=== PATIENT | female | born 1955 | race Caucasian/White ===

== ENCOUNTER 2024-10-02 10:50 | Outpatient (CLI) | payer MEDICARE, OTHER ==
[2024-10-02 11:29] LABS: CREATININE 0.57 MG/DL (0.40-0.90); TOTAL CARBON DIOXIDE 30.4 MMOL/L (24-32); eGFR > 90 ML/MIN
== END 2024-10-02 23:59 | disposition home or self-care (01) ==
LOC: LAB 10:50
PROVIDERS: ATTEND Family Medicine
DX: M19.011 Primary osteoarthritis, right shoulder (principal); M25.511 Pain in right shoulder
CPT/HCPCS: 36415; 80053

== ENCOUNTER 2024-10-03 12:47 | Outpatient (CLI) | payer MEDICARE, OTHER ==
--- NOTE | 2024-10-03 20:37 | RADIOLOGY REPORT ---
EXAM: MR MRI UPPER EXTREMITY RIGHT INDICATION: 68 years old, Female; PAIN IN RIGHT SHOULDER; SOFT TISS MASS ABOVE R AC. PAIN IN RIGHT SH OULDER; SOFT TISS MASS ABOVE R AC TECHNIQUE: Multiplanar, multisequence MR images of the right shoulder were obtained in the absence of gadolinium contrast material. COMPARISON: None FINDINGS: [CORACOACROMIAL ARCH]: Mild degenerative change of the acromioclavicular joint. Intact coracoclavicul ar ligaments. Intact coracoacromial ligaments. Significant ganglion cysts extruded superiorly compati ble with geyser sign. Ganglion cyst superior to the right acromioclavicular joint measures up to 2.8 cm [ROTATOR CUFF]: Massive superior rotator cuff tear with proximal retraction to the level of the gleno id articular surface. Subsequent elevation of the humeral head complete tear of the subscapularis te ndon with proximal retraction beyond the level of the glenoid. [BICEPS TENDON]: Complete absence of the long head of the biceps tendon with likely distal retraction . Disruption of the biceps labral complex. Volume loss of the anterior labrum. [LABRUM]: Disruption of the biceps labral complex. Volume loss of the anterior labrum. [CARTILAGE]: Full-thickness apposing cartilage loss of the anterior to central glenoid of the humeral head [GLENOHUMERAL JOINT]: Small glenohumeral effusion. No intra-articular body. [BONES]: No acute fracture, osseous contusion, or aggressive focal osseous lesion. [MUSCLES]: At least moderate fatty atrophy of the supraspinatus, infraspinatus and subscapularis. [NEUROVASCULAR/LYMPH NODES]: Normal. [OTHER]: None. IMPRESSION: 1. Massive superior rotator cuff tear with proximal retraction to the level of the glenoid articular surface. Subsequent elevation of the humeral head. Subsequent geyser sign with extruded fluid throug h the superior aspect of the right acromioclavicular joint 2. Complete tear of the subscapularis tendon with proximal retraction beyond the level of the glenoid . 3. Complete absence of the long head of the biceps tendon with likely distal retraction. Disruption o f the biceps labral complex. Volume loss of the anterior labrum. 4. Full-thickness apposing cartilage loss of the anterior to central glenoid of the humeral head. 5. At least moderate fatty atrophy of the supraspinatus, infraspinatus and subscapularis. 6. Small glenohumeral effusion.
[2024-10-03] MEDS ORDERED: GADOTERATE MEGLUMINE 7.5 MMOL/15 ML VIAL IV ONE (21:23)
== END 2024-10-03 23:59 | disposition home or self-care (01) ==
LOC: MRI 12:47
PROVIDERS: ATTEND Physician Assistant Surgical
DX: M19.011 Primary osteoarthritis, right shoulder (principal); M25.511 Pain in right shoulder; M67.411 Ganglion, right shoulder; M25.411 Effusion, right shoulder; M94.8X1 Other specified disorders of cartilage, shoulder
CPT/HCPCS: 73223; A9575